=== PATIENT | male | born 1955 | race Caucasian/White ===

== ENCOUNTER 2017-03-26 03:37 | Emergency (ER) | payer BC, SELFPAY ==
[2017-03-26 03:42] VITALS: BP 173/146; PULSE 87; RESP 20; TEMP 37.3; O2SAT 99; BMI 27.2
[2017-03-26 03:47] VITALS: BMI 27.2
--- NOTE | 2017-03-26 03:51 | XR_ITS ---
XR chest 2V HISTORY: Cough and congestion ITS.REASON: COUGH ORDERING PHYSICIAN: Mk Kerr MD PATIENT AGE: 61 years COMPARISON: None available FINDINGS: The cardiomediastinal silhouette and pulmonary vascularity are within normal limits. The lungs are clear without infiltrates, suspicious nodules, or pleural effusions. Mild atelectatic or fibrotic changes are present in the left lung base. No acute bony abnormalities. IMPRESSION: Mild left basilar atelectasis or fibrosis otherwise negative
[2017-03-26 03:57] VITALS: BP 149/92; PULSE 87; RESP 20; TEMP 37.3; O2SAT 99; BMI 27.2
[2017-03-26 04:29] VITALS: PULSE 89; PULSE 90
[2017-03-26 04:42] LABS: Basophils % 0.7 % (0.1-2.0); Eosinophils # 0.1 K/mm3 (0.0-0.4); Eosinophils % 2.6 % (0.1-12.0); Hematocrit 49.6 % (42.0-52.0); Hemoglobin 16.5 g/dL (14.1-18.0); Lymphocytes # 0.9 K/mm3 (0.7-4.5); Lymphocytes % 21.7 K/mm3 (10-50); Mean Corpuscular HGB Conc 33.3 g/dL (31.8-35.4); Mean Corpuscular Hemoglobin 31.9 pg (27.0-31.2); Mean Platelet Volume 7.8 fl (7.4-10.4); Monocytes # 0.3 K/mm3 (0.1-1.0); Monocytes % 7.5 % (1.7-9.3); Neutrophils # 2.7 K/mm3 (1.8-7.8); Neutrophils % 67.5 % (37.0-80.0); Platelet Count 175 K/mm3 (142-424); Red Blood Count 5.17 M/mm3 (4.60-6.20); Red Cell Distribution Width 13.3 % (11.5-17.5)
[2017-03-26 04:47] LABS: Alanine Aminotransferase 163 U/L (12-78); Albumin Level 3.9 gm/dL (3.4-5.0); Albumin/Globulin Ratio 0.9 (1.1-1.8); Alkaline Phosphatase 102 U/L (46-116); Aspartate Amino Transferase 107 U/L (15-37); Bilirubin,Total 0.6 mg/dL (0.2-1.0); Blood Urea Nitrogen 9 mg/dL (7-18); Calcium 8.7 mg/dL (8.5-10.1); Carbon Dioxide 26 mmol/L (21.0-32.0); Chloride 103 mmol/L (98-107); Creatinine Clearance Estimated 79 mg/ml (0-300); Creatinine,Serum 1.19 mg/dL (0.70-1.30); Estimated Glomerular Filt Rate > 60 ml/min (>60); GFR (African American) > 60 ML/MIN (>60); Globulin 4.2 gm/dl (1.3-3.2); Glucose 117 mg/dL (74-106); Sodium 137 mmol/L (136-145); Total Protein,Serum 8.1 gm/dL (6.4-8.2)
[2017-03-26 04:51] LABS: Lactic Acid 1.3 mmol/L (0.4-2.0)
--- NOTE | 2017-03-26 05:11 | HMH.EDSOB ---
ED Disposition Clinical Impression: Flu Disposition: Home, Self-Care Condition on Discharge: Good Instructions: DI for Cough -- Adult Additional Instructions: use meds and fluids and see pcp for follow up Prescriptions: Benzonatate [Tessalon Perle 100mg Cap] 100 mg PO TID #30 cap Oseltamivir Phosphate [Tamiflu 75mg Capsule] 75 mg PO BID 5 Days #10 cap predniSONE [Prednisone 20mg Tab] 20 mg PO DAILY #10 tab - Critical Care Critical Care Time: No Attestation: On 03/26/17, the high probability of a clinically significant, sudden or life threatening deterioration of the following system(s) required my full and direct attention, intervention and personal management. The time I documented below is in addition to time spent performing reported procedures but includes the following listed in this critical care notation. Medical Decision Making - Medical Records Medical records reviewed: Yes: I reviewed the patient's medical records. Vital Signs: 03/26/17 03:42 03/26/17 03:57 03/26/17 04:29 Temperature 99.2 F 99.2 F Temperature Source Temporal Artery Scan Temporal Artery Scan Pulse Rate 90 Pulse Rate [Right Radial] 87 87 Respiratory Rate 20 20 Blood Pressure [Right Arm] 173/146 149/92 Blood Pressure Mean [Right Arm] 155 111 Blood Pressure Source [Right Arm] Automatic Cuff Automatic Cuff Blood Pressure Position [Right Arm] Sitting Sitting 02 Sat by Pulse Oximetry 99 99 Oxygen Delivery Method Room Air Room Air - Lab Data Lab Results 03/26/17 03:40: Influenza Type A Ag Negative, Influenza Type B Ag Positive 03/26/17 04:25: WBC 4.0 L, RBC 5.17, Hgb 16.5, Hct 49.6, MCV 96.0 H, MCH 31.9 H, MCHC 33.3, RDW 13.3, Plt Count 175, MPV 7.8, Neut % (Auto) 67.5, Lymph % (Auto) 21.7, Mckenzie % (Auto) 7.5, Eos % (Auto) 2.6, Baso % (Auto) 0.7, Neut # (Auto) 2.7, Lymph # (Auto) 0.9, Mckenzie # (Auto) 0.3, Eos # (Auto) 0.1, Baso # (Auto) 0.0 03/26/17 04:25: Sodium 137, Potassium 4.0, Chloride 103, Carbon Dioxide 26, Anion Gap 12.0, BUN 9, Creatinine 1.19, Estimated Creat Clear 79, Estimated GFR > 60, Est GFR ( Amer) > 60, Glucose 117 H, Calcium 8.7, Total Bilirubin 0.6, AST 107 H, ALT 163 H, Alkaline Phosphatase 102, Total Protein 8.1, Albumin 3.9, Globulin 4.2 H, Albumin/Globulin Ratio 0.9 L 03/26/17 04:25: Lactic Acid 1.3 Result diagrams: 03/26/17 04:25 03/26/17 04:25 Orders (Tests/Meds): ED MEDICATIONS Generic Name Dose Route Start Last Admin Trade Name Freq PRN Reason Stop Dose Admin Sodium Chloride 10 ml 03/26/17 04:12 Saline Flush 10ml Syringe IV 04/25/17 04:11 NEEDED PRN Maintain IV Site Discontinued Medications Generic Name Dose Route Start Last Admin Trade Name Freq PRN Reason Stop Dose Admin Albuterol/Ipratropium 3 ml 03/26/17 03:57 03/26/17 04:26 Duoneb 3ml Neb IH 03/26/17 03:58 3 ml ONCE ONE Administration ORDERS Category Date Time Status CXR 2 view (NOT portable) [XR chest 2V] Stat Exams 03/26/17 03:51 Taken Blood Culture Stat Micro 03/26/17 04:25 Received - Radiology Data #1 Image Reviewed: Yes I reviewed the patient's radiology results Preliminary Findings: Abnormal - Cristobal Inquiry Pt receiving controlled substance: No Resp/SOB HPI - General Chief Complaint: Shortness of Breath/Dyspnea Stated Complaint: Dizziness,SOA,cough Time Seen by Provider: 03/26/17 05:11 Mode of Arrival: Ambulatory Source of Information: Patient, Relative, Medical Record Limitations: No Limitations Description of Symptoms (Recalled from ER Triage Doc. by RN): PT REPORTS NAGGING COUGH WITH YELLOW SPUTUM, FEVER, BODY ACHES, SOB, AND WEAKNESS SINCE WEDNESDAY . - History of Present Illness pt with prod cough over the last 2 days MD Complaint: shortness of breath Onset (ago): day(s) Severity: moderate Consistency/Duration: intermittent Exacerbating factors: coughing - Related Data Home Medications Medication Instructions Re
--- NOTE | 2017-03-26 05:17 | ED_ITS ---
ED Disposition Clinical Impression: Flu Disposition: Home, Self-Care Condition on Discharge: Good Instructions: DI for Cough -- Adult Additional Instructions: use meds and fluids and see pcp for follow up Prescriptions: Benzonatate [Tessalon Perle 100mg Cap] 100 mg PO TID #30 cap Oseltamivir Phosphate [Tamiflu 75mg Capsule] 75 mg PO BID 5 Days #10 cap predniSONE [Prednisone 20mg Tab] 20 mg PO DAILY #10 tab - Critical Care Critical Care Time: No Attestation: On 03/26/17, the high probability of a clinically significant, sudden or life threatening deterioration of the following system(s) required my full and direct attention, intervention and personal management. The time I documented below is in addition to time spent performing reported procedures but includes the following listed in this critical care notation. Medical Decision Making - Medical Records Medical records reviewed: Yes: I reviewed the patient's medical records. Vital Signs: 03/26/17 03:42 03/26/17 03:57 03/26/17 04:29 Temperature 99.2 F 99.2 F Temperature Source Temporal Artery Scan Temporal Artery Scan Pulse Rate 90 Pulse Rate [Right Radial] 87 87 Respiratory Rate 20 20 Blood Pressure [Right Arm] 173/146 149/92 Blood Pressure Mean [Right Arm] 155 111 Blood Pressure Source [Right Arm] Automatic Cuff Automatic Cuff Blood Pressure Position [Right Arm] Sitting Sitting 02 Sat by Pulse Oximetry 99 99 Oxygen Delivery Method Room Air Room Air - Lab Data Lab Results 03/26/17 03:40: Influenza Type A Ag Negative, Influenza Type B Ag Positive 03/26/17 04:25: WBC 4.0 L, RBC 5.17, Hgb 16.5, Hct 49.6, MCV 96.0 H, MCH 31.9 H , MCHC 33.3, RDW 13.3, Plt Count 175, MPV 7.8, Neut % (Auto) 67.5, Lymph % (Auto ) 21.7, Taliaferro % (Auto) 7.5, Eos % (Auto) 2.6, Baso % (Auto) 0.7, Neut # (Auto) 2.7, Lymph # (Auto) 0.9, Taliaferro # (Auto) 0.3, Eos # (Auto) 0.1, Baso # (Auto) 0.0 03/26/17 04:25: Sodium 137, Potassium 4.0, Chloride 103, Carbon Dioxide 26, Anion Gap 12.0, BUN 9, Creatinine 1.19, Estimated Creat Clear 79, Estimated GFR > 60, Est GFR ( Amer) > 60, Glucose 117 H, Calcium 8.7, Total Bilirubin 0.6, AST 107 H, ALT 163 H, Alkaline Phosphatase 102, Total Protein 8.1, Albumin 3.9, Globulin 4.2 H, Albumin/Globulin Ratio 0.9 L 03/26/17 04:25: Lactic Acid 1.3 Result diagrams: 03/26/17 04:25 03/26/17 04:25 Orders (Tests/Meds): ED MEDICATIONS Generic Name Dose Route Start Last Admin Trade Name Freq PRN Reason Stop Dose Admin Sodium Chloride 10 ml 03/26/17 04:12 Saline Flush 10ml Syringe IV 04/25/17 04:11 NEEDED PRN Maintain IV Site Discontinued Medications Generic Name Dose Route Start Last Admin Trade Name Freq PRN Reason Stop Dose Admin Albuterol/Ipratropium 3 ml 03/26/17 03:57 03/26/17 04:26 Duoneb 3ml Neb IH 03/26/17 03:58 3 ml ONCE ONE Administration ORDERS Category Date Time Status CXR 2 view (NOT portable) [XR chest 2V] Stat Exams 03/26/17 03:51 Taken Blood Culture Stat Micro 03/26/17 04:25 Received - Radiology Data #1 Image Reviewed: Yes I reviewed the patient's radiology results Preliminary Findings: Abnormal - Cristobal Inquiry Pt receiving controlled substance: No Resp/SOB HPI - General
[2017-03-26 05:49] VITALS: BP 132/81; PULSE 95; RESP 20; O2SAT 95
[2017-03-26 06:46] VITALS: O2SAT 97
== END 2017-03-26 06:46 | disposition home or self-care (01) ==
PROVIDERS: Emergency Provider Emergency Medicine
DX: J10.1 Influenza due to other identified influenza virus with other respiratory manifestations (principal)
CPT/HCPCS: 71046; 80053; 83605; 85025; 87040; 87275; 87276; 96365; 96375; 99284

== ENCOUNTER 2020-03-21 09:10 | Emergency (ER) | payer BC, SELFPAY ==
[2020-03-21 09:15] VITALS: BP 158/103; PULSE 85; RESP 20; TEMP 36.6; O2SAT 99; BMI 28.7
--- NOTE | 2020-03-21 09:38 | HMH.EDUTC ---
[facility] [place] Imp[place]: Strep [place] Disposition: Home, Self-Care Condition on Discharge: Good Instructions: Strep Throat (Alternative Therapy), DI for Strep Throat, Penicillin G Benzathine Injection Additional Instructions: *Monitor Temp, Over the counter Motrin or Tylenol as directed/as needed Tylenol every 4 hours and Motrin every 6 hours (as long as your family doctor has told you that you can take it) for fever or pain. and straight to ER if unable to lower temp less than 101.0 after medication given *Warm salt water gargles may help to soothe the throat *Throat Lozenges *Warm fluids like tea with honey may help to soothe the throat *Sleep elevated *Humidifier/Vaporizer *If you did not take Penicillin shot or was unable to, start taking antibiotic immediately and make sure that you take it for the FULL length of time although you should start to feel better in 24-48 hours *change toothbrush and toothpaste 24-48 hours after starting to take antibiotics so you do not reinfect yourself Monitor Temp. Tylenol and/or Ibuprofen as needed. ER if fever is no less than 101 despite alternating Tylenol and Ibuprofen * Encourage fluids, water, Gatorade, powerade, pedialyte if /toddler/or child *Cold fluids, popsicles and ice cream may feel good on his throat Follow up IMMEDIATELY for new or worsening symptoms or no Noticeable improvement over the next 48-72 hours. 911 for difficulty breathing or swallowing Referrals: Sharonda Mckeon MD [Primary Care Provider] - As needed Time of Disposition: 09:47 Medical Decision Making - Cristobal Inquiry Pt receiving controlled substance: No Cristobal was queried for this patient: No Vital Signs: 03/21/20 09:15 03/21/20 10:12 Temperature 97.9 F 97.9 F Temperature Source Oral Pulse Rate 85 Pulse Rate [Left Brachial] 85 Respiratory Rate 20 20 Blood Pressure 158/103 H Blood Pressure [Left Arm] 158/103 H Blood Pressure Mean [Left Arm] 121 Blood Pressure Source [Left Arm] Automatic Cuff Blood Pressure Position [Left Arm] Sitting 02 Sat by Pulse Oximetry 99 Oxygen Delivery Method Room Air - Lab Data Lab results reviewed: Yes: I reviewed the patient's lab results. Lab Results 03/21/20 09:31: Strep Scn [facility] Positive A Orders (Tests/Meds): ED MEDICATIONS Discontinued Medications Generic Name Dose Route Start Last Admin Trade Name Sajan PRN Reason Stop Dose Admin Penicillin G Benzathine 1,200,000 unit 03/21/20 09:44 03/21/20 09:59 Penicillin G Benzathine 1,200,000 Units/2ml Syringe IM 03/21/20 09:45 1,200,000 unit ONCE ONE Administration Protocol [facility] [place] - General Stated complaint: ear pain Time Seen by Provider: 03/21/20 09:38 Mode of Arrival: Ambulatory Source of Information: Patient Limitations: No Limitations Description of Symptoms (Recalled from Triage Doc. by RN): PATIENT C/O BILATERAL EAR PAIN, DRAINAGE, AND THROAT IRRITATION SINCE LAST NIGHT HEENT Symptoms (Recalled from RN notes): Yes Resp Symptoms (Recalled from RN notes): No Skin Symptoms (Recalled from RN notes): No MS Symptoms (Recalled from RN notes): No Functional Status (Recalled from RN notes): WNL - History of Present Illness Provider Complaint: Patient states that he has ear problems on and off alot State that he has been having pain in both ears, and his throat hurts and feels scratchy and he looked at his throat in the mirror and noticed he had some white blisters back there so he come in to get checked - Related Data Home Medications Medication Instructions Recorded Confirmed Amlodipine/Atorvastatin 1 each PO DAILY 03/26/17 03/26/17 [Amlodipine-Atorvast 5-10 mg] Previous Rx's Medication Instructions Recorded Benzonatate [Tessalon Perle 100mg 100 mg PO TID #30 cap 03/26/17 Cap] Oseltamivir Phosphate [Tamiflu 75 mg PO BID 5 Days #10 cap 03/26/17 75mg Capsule] predniSONE [Prednisone 20mg 20 mg PO DAILY #10 ta
[2020-03-21 09:48] LABS: UTC Strep Screen (Rapid) Positive (Negative)
[2020-03-21 10:12] VITALS: BP 158/103; PULSE 85; RESP 20; TEMP 36.6; O2SAT 99
== END 2020-03-21 10:14 | disposition home or self-care (01) ==
PROVIDERS: Emergency Provider Nurse Practitioner; PCP Family Medicine
DX: J02.0 Streptococcal pharyngitis (principal)
CPT/HCPCS: 87880; 96372; 99202; G0463; J0561

== ENCOUNTER 2020-11-17 09:44 | Emergency (ER) | payer MEDICARE, SELFPAY ==
[2020-11-17 10:39] VITALS: BP 157/103; PULSE 71; RESP 120; TEMP 36.9; O2SAT 97; BMI 27.2
--- NOTE | 2020-11-17 11:00 | HMH.EDUTC ---
[facility] [place] Clinical Impression: Bronchitis Sinusitis Qualifiers: Sinusitis location: maxillary Chronicity: acute Recurrence: non-recurrent Qualified Code(s): J01.00 - Acute maxillary sinusitis, unspecified Disposition: Home, Self-Care Condition on Discharge: Good Instructions: DI for Sinusitis Prescriptions: Amoxicillin [Amoxicillin 875MG Tab] 875 mg PO Q12H #20 tab Transmission Status: Pending to [facility] Guaifenesin/Dextromethorphan [Mucinex Dm ER 1,200-60 mg Tab] 1 tab PO BID 10 Days #20 tab Transmission Status: Pending to [facility] predniSONE [Prednisone 20mg Tab] 20 mg PO BID 5 Days #10 tab Transmission Status: Pending to [facility] Referrals: Sharonda Mckeon MD [Primary Care Provider] - Time of Disposition: 11:05 Medical Decision Making - Cristobal Inquiry Pt receiving controlled substance: No Vital Signs: 11/17/20 10:39 Temperature 98.4 F Temperature Source Oral Pulse Rate [Left] 71 Respiratory Rate 120 H Blood Pressure [Right Arm] 157/103 H Blood Pressure Mean [Right Arm] 121 02 Sat by Pulse Oximetry 97 Orders (Tests/Meds): ORDERS Category Date Time Status Covid-19 Nasal PCR ([facility]) Routine Lab 11/17/20 10:48 Ordered [facility] [place]PI - General Stated complaint: head/chest congestion Time Seen by Provider: 11/17/20 11:00 Mode of Arrival: Ambulatory Source of Information: Patient Limitations: No Limitations Description of Symptoms (Recalled from Triage Doc. by RN): pt c/o congestion and a productive cough with green sputum x2 days. HEENT Symptoms (Recalled from RN notes): No Resp Symptoms (Recalled from RN notes): Yes (productive cough with green sputum.) Skin Symptoms (Recalled from RN notes): No MS Symptoms (Recalled from RN notes): No Functional Status (Recalled from RN notes): na - History of Present Illness Provider Complaint: 3-4 day history of cough, congestion, ear fullness, sinus pain. Denies ear pain but can't hear well. Denies sore throat. Denies fever. Cough mostly non-productive - feels stuck. No vomiting or diarrhea. No rash. No known exposure to COVID19. Started after mowing yards. Onset (ago): day(s) (4) Location: face, chest Quality: aching, constant Consistency: constant Relieving factors: none Exacerbating factors: none Associated symptoms: denies other symptoms Treatments prior to arrival: other (OTC sinus meds) - Related Data Home Medications Medication Instructions Recorded Confirmed Amlodipine/Atorvastatin 1 each PO DAILY 03/26/17 03/26/17 [Amlodipine-Atorvast 5-10 mg] Previous Rx's Medication Instructions Recorded Benzonatate [Tessalon Perle 100mg 100 mg PO TID #30 cap 03/26/17 Cap] Oseltamivir Phosphate [Tamiflu 75 mg PO BID 5 Days #10 cap 03/26/17 75mg Capsule] predniSONE [Prednisone 20mg 20 mg PO DAILY #10 tab 03/26/17 Tab] Amoxicillin [Amoxicillin 875MG 875 mg PO Q12H #20 tab 11/17/20 Tab] Guaifenesin/Dextromethorphan 1 tab PO BID 10 Days #20 tab 11/17/20 [Mucinex Dm ER 1,200-60 mg Tab] predniSONE [Prednisone 20mg 20 mg PO BID 5 Days #10 tab 11/17/20 Tab] Allergies Allergy/AdvReac Type Severity Reaction Status Date / Time No Known Allergies Allergy Verified 03/26/17 03:49 - Worker's Comp Is this a Worker's Comp case?: No [facility] History - Hepatitis A Screen Drug use history?: No High risk sexual behaviors?: No History of sexually transmitted infection?: No Currently employed?: No Childcare worker?: No Do you have indoor plumbing?: Yes Do you have electricity?: Yes Attestation statement:: This patient has been screened for Hepatitis A risk factors. I have reviewed the patient's past medical history: Yes Medical History: Reports:: Hypertension - Social History Smoking Status: Never smoker Alcohol Intake: never Alcohol Intake Frequency:: a few times a month Occupational Status: other ROS Obtained: Yes All systems reviewed
[2020-11-17 11:08] VITALS: BP 151/96; PULSE 74; RESP 18; TEMP 36.8
== END 2020-11-17 11:35 | disposition home or self-care (01) ==
PROVIDERS: Emergency Provider Physician Assistant; PCP Family Medicine
DX: U07.1 COVID-19 (principal); J01.00 Acute maxillary sinusitis, unspecified; I10 Essential (primary) hypertension
CPT/HCPCS: G0463; 96372; 99202; J1030; U0003

== ENCOUNTER → 2021-10-01 18:48 | Outpatient (CLI) | payer MEDICARE, SELFPAY ==
[2021-10-01 19:22] LABS: Basophils # 0.1 K/mm3 (0-0.2); Basophils % 1.6 % (0.1-2.0); Eosinophils # 0.1 K/mm3 (0.0-0.4); Eosinophils % 1.2 % (0.1-12.0); Hematocrit 52.9 % (42.0-52.0); Hemoglobin 16.4 g/dL (14.1-18.0); Lymphocytes # 1.4 K/mm3 (0.7-4.5); Lymphocytes % 26.1 % (10-50); Mean Corpuscular Hemoglobin 31.6 pg (27.0-31.2); Mean Platelet Volume 11.7 fl (7.4-10.4); Monocytes # 0.7 K/mm3 (0.1-1.0); Monocytes % 12.9 % (1.7-9.3); Neutrophils # 3.2 K/mm3 (1.8-7.8); Neutrophils % 58.2 % (37.0-80.0); Platelet Count 182 K/mm3 (142-424); Red Blood Count 5.19 M/mm3 (4.60-6.20); Red Cell Distribution Width 13.5 % (11.5-17.5); White Blood Count 5.5 K/mm3 (4.8-10.8)
[2021-10-01 19:32] LABS: Alanine Aminotransferase 58 U/L (12-78); Albumin Level 4.2 g/dl (3.5-5.0); Albumin/Globulin Ratio 1.4 (1.1-1.8); Alkaline Phosphatase 94 U/L (38-126); Anion Gap 11.6 mEq/L (5-15); Aspartate Amino Transferase 61 U/L (17-59); Bilirubin,Total 0.3 mg/dl (0.2-1.3); Blood Urea Nitrogen 13 mg/dl (9-20); Calcium 9.2 mg/dl (8.4-10.2); Carbon Dioxide 27 mmol/L (22.0-30.0); Chloride 103 mmol/L (98-107); Estimated Glomerular Filt Rate 67 ml/min (>60); GFR (African American) 81 ML/MIN (>60); Globulin 2.9 g/dL (1.3-3.2); Glucose 89 mg/dl (74-100); Potassium 4.6 mmoL/L (3.5-5.1); Sodium 137 mmol/L (136-145); Total Protein,Serum 7.1 g/dl (6.3-8.2)
== END ==
PROVIDERS: PCP Nurse Practitioner; Visit Provider Nurse Practitioner
DX: J01.00 Acute maxillary sinusitis, unspecified (principal); H53.8 Other visual disturbances
CPT/HCPCS: 80053; 85025

== ENCOUNTER → 2022-07-21 23:18 | Outpatient (CLI) | payer MEDICARE, SELFPAY ==
[2022-07-21 18:35] LABS: Chloride 100 mmol/L (98-107); Potassium 4.6 mmoL/L (3.5-5.1); Sodium 141 mmol/L (136-145)
[2022-07-21 18:38] LABS: Alanine Aminotransferase 44 U/L (12-78); Albumin Level 4.3 g/dl (3.5-5.0); Albumin/Globulin Ratio 1.5 (1.1-1.8); Alkaline Phosphatase 98 U/L (38-126); Anion Gap 17.6 mEq/L (5-15); Aspartate Amino Transferase 44 U/L (17-59); Bilirubin,Total 0.7 mg/dl (0.2-1.3); Blood Urea Nitrogen 11 mg/dl (9-20); Carbon Dioxide 28 mmol/L (22.0-30.0); Estimated Glomerular Filt Rate 75 ml/min (>60); GFR (African American) 90 ML/MIN (>60); Globulin 2.9 g/dL (1.3-3.2); Total Protein,Serum 7.2 g/dl (6.3-8.2)
[2022-07-21 18:39] LABS: Calcium 9.2 mg/dl (8.4-10.2); Glucose 102 mg/dl (74-100)
[2022-07-21 19:08] LABS: Prostate Specific Ag Screen 1.6 ng/ml (0.0-4.0); Thyroid Stimulating Hormone 2.68 uIU/mL (0.465-4.68)
[2022-07-21 19:27] LABS: Vitamin B12 876 pg/mL (239-931)
== END ==
PROVIDERS: PCP Family Medicine; Visit Provider Family Medicine
DX: G47.00 Insomnia, unspecified (principal); Z76.0 Encounter for issue of repeat prescription; I10 Essential (primary) hypertension; Z00.00 Encounter for general adult medical examination without abnormal findings; K21.9 Gastro-esophageal reflux disease without esophagitis; M25.561 Pain in right knee; J30.9 Allergic rhinitis, unspecified; Z12.5 Encounter for screening for malignant neoplasm of prostate
CPT/HCPCS: 80053; 82607; 84443; G0103

== ENCOUNTER → 2023-02-08 08:25 | Outpatient (CLI) | payer MEDICARE, SELFPAY ==
[2023-02-08 19:10] LABS: Hemoglobin A1C 5.5 % (4.0-6.0)
[2023-02-08 19:50] LABS: Alanine Aminotransferase 42 U/L (12-78); Albumin Level 4.1 g/dl (3.5-5.0); Albumin/Globulin Ratio 1.4 (1.1-1.8); Alkaline Phosphatase 91 U/L (38-126); Anion Gap 12.7 mEq/L (5-15); Aspartate Amino Transferase 47 U/L (17-59); Bilirubin,Total 0.8 mg/dl (0.2-1.3); Blood Urea Nitrogen 12 mg/dl (9-20); Calcium 9.3 mg/dl (8.4-10.2); Carbon Dioxide 26 mmol/L (22.0-30.0); Chloride 104 mmol/L (98-107); Cholesterol 214 mg/dl (140-200); Estimated Glomerular Filt Rate 67 ml/min (>60); GFR (African American) 81 ML/MIN (>60); Globulin 2.9 g/dL (1.3-3.2); Glucose 111 mg/dl (74-100); HDL Cholesterol 54 mg/dl (40-60); Potassium 4.7 mmoL/L (3.5-5.1); Sodium 138 mmol/L (136-145); Triglycerides 139 mg/dl (30-150); VLDL Cholesterol 28 mg/dL (0-40)
[2023-02-08 20:01] LABS: Direct LDL Cholesterol 132.41 mg/dL (100-129)
== END ==
PROVIDERS: PCP Nurse Practitioner; Visit Provider Nurse Practitioner
DX: I10 Essential (primary) hypertension (principal); K21.9 Gastro-esophageal reflux disease without esophagitis; R73.01 Impaired fasting glucose
CPT/HCPCS: 80053; 80061; 83036

== ENCOUNTER → 2023-03-10 23:23 | Outpatient (CLI) | payer MEDICARE, SELFPAY ==
[2023-03-10 17:49] LABS: Coronavirus 19, PCR Not Detected (NotDetected); Influenza A, PCR Not Detected (NotDetected); Influenza B, PCR Not Detected (NotDetected)
== END ==
LOC: LAB.DROPOF 23:23
PROVIDERS: PCP Nurse Practitioner; Visit Provider Nurse Practitioner
DX: J06.9 Acute upper respiratory infection, unspecified (principal)
CPT/HCPCS: 87636

== ENCOUNTER 2023-09-06 18:00 | Outpatient (CLI) | payer MEDICARE, SELFPAY ==
[2023-09-06 19:34] LABS: Alanine Aminotransferase 47 U/L (12-78); Albumin Level 4.3 g/dl (3.5-5.0); Albumin/Globulin Ratio 1.4 (1.1-1.8); Alkaline Phosphatase 93 U/L (38-126); Aspartate Amino Transferase 51 U/L (17-59); Bilirubin,Total 0.8 mg/dl (0.2-1.3); Blood Urea Nitrogen 11 mg/dl (9-20); Calcium 9.5 mg/dl (8.4-10.2); Carbon Dioxide 27 mmol/L (22.0-30.0); Chloride 105 mmol/L (98-107); Cholesterol 230 mg/dl (140-200); Estimated Glomerular Filt Rate 74 ml/min (>60); GFR (African American) 90 ML/MIN (>60); Glucose 110 mg/dl (74-100); HDL Cholesterol 58 mg/dl (40-60); Sodium 141 mmol/L (136-145); Total Protein,Serum 7.3 g/dl (6.3-8.2); Triglycerides 119 mg/dl (30-150); VLDL Cholesterol 24 mg/dL (0-40)
[2023-09-06 19:45] LABS: Direct LDL Cholesterol 136.09 mg/dL (100-129)
[2023-09-06 20:03] LABS: Hemoglobin A1C 5.6 % (4.0-6.0)
[2023-09-06 20:06] LABS: Prostate Specific Ag Screen 0.8 ng/ml (0.0-4.0); Thyroid Stimulating Hormone 1.81 uIU/mL (0.465-4.68)
== END 2023-09-06 23:59 | disposition home or self-care (01) ==
LOC: LAB.DROPOF 09-07 09:04
PROVIDERS: PCP Nurse Practitioner; Visit Provider Nurse Practitioner
DX: R73.01 Impaired fasting glucose (principal); I10 Essential (primary) hypertension; K21.9 Gastro-esophageal reflux disease without esophagitis; Z12.5 Encounter for screening for malignant neoplasm of prostate; Z53.20 Procedure and treatment not carried out because of patient's decision for unspecified reasons; E78.5 Hyperlipidemia, unspecified
CPT/HCPCS: 80053; 80061; 83036; 84443; G0103

== ENCOUNTER 2023-11-01 15:12 | Outpatient (CLI) | payer MEDICARE, SELFPAY ==
[2023-11-01 21:31] LABS: Adenovirus,PCR Not Detected (NotDetected); Bordetella Pertussis Not Detected (NotDetected); Chlamydophila Pneumoniae, PCR Not Detected (NotDetected); Coronavirus 229E Not Detected (NotDetected); Coronavirus NL63 Not Detected (NotDetected); Coronavirus OC43 Not Detected (NotDetected); Coronovirus HKU1,PCR Not Detected (NotDetected); Human Metapneumovirus Not Detected (NotDetected); Influenza A, PCR Not Detected (NotDetected); Influenza AH1, 2009 Not Detected (NotDetected); Influenza AH1, PCR Not Detected (NotDetected); Influenza AH3,PCR Not Detected (NotDetected); Influenza B, PCR Not Detected (NotDetected); Mycoplasma Pneumoniae, PCR Not Detected (NotDetected); Parainfluenza 1, PCR Not Detected (NotDetected); Parainfluenza 2, PCR Not Detected (NotDetected); Parainfluenza 3, PCR Not Detected (NotDetected); Parainfluenza 4, PCR Not Detected (NotDetected); Respiratory Syncytial Virus Not Detected (NotDetected); Rhinovirus/Enterovirus Not Detected (NotDetected)
[2023-11-03 23:38] LABS: Coronavirus 19, PCR Detected (NotDetected)
== END 2023-11-01 23:59 | disposition home or self-care (01) ==
LOC: LAB.DROPOF 11-02 15:13
PROVIDERS: PCP Nurse Practitioner; Visit Provider Nurse Practitioner
DX: J06.9 Acute upper respiratory infection, unspecified (principal)
CPT/HCPCS: 87581; 87632; 87635; 87798

== ENCOUNTER 2024-06-12 10:23 | Outpatient (CLI) | payer MEDICARE, SELFPAY ==
[2024-06-12 22:16] LABS: Hemoglobin A1C 6.3 % (4.0-6.0)
[2024-06-12 22:48] LABS: Albumin Level 4.3 g/dl (3.5-5.0); Chloride 106 mmol/L (98-107); Potassium 4.8 mmoL/L (3.5-5.1); Sodium 137 mmol/L (136-145)
[2024-06-12 22:50] LABS: Blood Urea Nitrogen 13 mg/dl (9-20)
[2024-06-12 22:51] LABS: Alanine Aminotransferase 67 U/L (12-78); Albumin/Globulin Ratio 1.7 (1.1-1.8); Alkaline Phosphatase 93 U/L (38-126); Anion Gap 3.8 mEq/L (5-15); Aspartate Amino Transferase 48 U/L (17-59); Bilirubin,Total 0.8 mg/dl (0.2-1.3); Calcium 9.6 mg/dl (8.4-10.2); Carbon Dioxide 32 mmol/L (22.0-30.0); Cholesterol 220 mg/dl (140-200); Estimated Glomerular Filt Rate 74 ml/min (>60); GFR (African American) 90 ML/MIN (>60); Globulin 2.5 g/dL (1.3-3.2); Glucose 122 mg/dl (74-100); Total Protein,Serum 6.8 g/dl (6.3-8.2); Triglycerides 165 mg/dl (30-150); VLDL Cholesterol 33 mg/dL (0-40)
[2024-06-12 22:52] LABS: Chol/HDL Ratio 4.1 (1-3.5); HDL Cholesterol 54 mg/dl (40-60)
[2024-06-12 23:01] LABS: Microalbumin/Creatinine Ratio 3.6
[2024-06-12 23:03] LABS: Direct LDL Cholesterol 132.89 mg/dL (100-129)
[2024-06-12 23:09] LABS: Creatinine,Urine Random 243 mg/dL (Not Estab.)
== END 2024-06-12 23:59 | disposition home or self-care (01) ==
LOC: LAB.DROPOF 06-13 12:48
PROVIDERS: PCP Nurse Practitioner; Visit Provider Nurse Practitioner
DX: I10 Essential (primary) hypertension (principal); K21.9 Gastro-esophageal reflux disease without esophagitis; R73.01 Impaired fasting glucose
CPT/HCPCS: 80053; 80061; 82043; 82570; 83036